=== PATIENT | male | born 1960 | race African-American/Black ===

== ENCOUNTER → 2018-10-24 10:09 | Outpatient (POV) | payer MEDICARE, SELFPAY ==
[2018-10-24 10:46] VITALS: BP 180/98; PULSE 84; RESP 18; O2SAT 98
--- NOTE | 2018-10-24 13:04 | HMH.PMCON ---
Assessment and Plan (1) Degenerative disc disease Current visit: Yes Status: Chronic Category: Medical (2) Facet arthropathy Current visit: Yes Status: Chronic Category: Medical Code(s): M47.819 - Spondylosis without myelopathy or radiculopathy, site unspecified - Assessment and plan all Dx Assessment and Plan for all problems:: Patient has had injective therapy with good relief in the past however most of his pain is axial in nature and it is increased with any kind of twisting movement. Patient has a positive Kemps test and positive facet loading is noted. Patient is on anti-inflammatories. Patient was on oxycodone from his previous pain clinic however he is not received that for quite some months. Patient and I discussed medial branch blocks he is interested in pursuing this. We will schedule him for 3 level L3-L4 L4-L5 L5-S1 bilateral medial branch block. Patient understands that this is a diagnostic procedure and he may be a candidate for a risotto me in the future. Patient's not on any anti-inflammatories and is continuing a home stretching routine. Dr. Bryson has reviewed this note and agrees with this plan of care. This note was dictated using voice recognition software and may contain errors or omissions HPI - Data of Consult Consult date: 10/24/18 Requesting Physician: Akanksha Spence APRN Primary Care Provider: Merari Ramesh - Consult Narrative Reason for consult: Back pain, neck History of present illness: Mr. Cisse is a 57 year old male who presents today for consultation in regard to his low back and neck pain. Patient rates pain a 5 out of 10 today. Patient stated started in 2007 after a medical accident. Patient has had low back pain and leg pain since. He has not had any surgical interventions. Patient was seen by a pain clinic where he received Percocet. Patient then had issues with his insurance and transfer care to another pain clinic where he received Percocet along with injections. Patient has not been seen there since July. Patient states that they were changing his prescriptions and he now looking for a new pain clinic. Patient and I discussed that we do not do medication management CC: Akanksha Spence APRN [facility] History I have reviewed the patient's past medical history: Yes Medical History: Reports:: Hyperlipidemia, Hypertension - *Social History Smoking Status: Current every day smoker Tobacco Type: cigarettes Alcohol Intake: never Occupational Status: other Housing: house Household Members: spouse Travel in the last 8 weeks: None - Psychiatric History Expresses thoughts of harming self/others: None Suicide Plan Description: No Plan *Family Hx:: Unable to obtain Review of Systems - Review of Systems ROS General: no recent weight change, no fever, no sleep disturbances Respiratory: no cough, no shortness of air, no recurring pulmonary infections Cardiovascular/Peripheral Vascular: No chest pain, No palpitations, no edema, no shortness of breath. Gastrointestinal: no incontinence, normal bowel movements reported Genitourinary: no incontinence Musculoskeletal: Back pain, leg pain, neck pain, arm pain Psychiatric: normal mood/ affect Neurological: [denies weakness in extremities], [denies balance issues] Meds Home Medications Medication Instructions Recorded Confirmed Type Amlodipine Besylate [Amlodipine 5 mg PO DAILY 10/24/18 10/24/18 History 10mg Tab] Cyclobenzaprine HCl 10 mg PO BID 10/24/18 10/24/18 History [Cyclobenzaprine 10mg Tab] Omeprazole [Omeprazole 40mg 40 mg PO DAILY 10/24/18 10/24/18 History Capsule] Oxycodone HCl [Oxycodone (IR) 10mg 10 mg PO QID 10/24/18 10/24/18 History Tab] Objective Vital signs: Pulse Resp BP Pulse Ox 84 18 180/98 H 98 10/24/18 10:46 10/24/18 10:46 10/24/18 10:46 10/24/18 10:46 Narrative: Physical Exam General: Alert and oriented x3, no a
--- NOTE | 2018-10-24 13:09 | P.CONS_ITS ---
Assessment and Plan (1) Degenerative disc disease Current visit: Yes Status: Chronic Category: Medical (2) Facet arthropathy Current visit: Yes Status: Chronic Category: Medical Code(s): M47.819 - Spondylosis without myelopathy or radiculopathy, site unspecified - Assessment and plan all Dx Assessment and Plan for all problems:: Patient has had injective therapy with good relief in the past however most of his pain is axial in nature and it is increased with any kind of twisting movement. Patient has a positive Kemps test and positive facet loading is noted. Patient is on anti-inflammatories. Patient was on oxycodone from his previous pain clinic however he is not received that for quite some months. Patient and I discussed medial branch blocks he is interested in pursuing this. We will schedule him for 3 level L3-L4 L4-L5 L5-S1 bilateral medial branch block. Patient understands that this is a diagnostic procedure and he may be a candidate for a risotto me in the future. Patient's not on any anti- inflammatories and is continuing a home stretching routine. Dr. Bryson has reviewed this note and agrees with this plan of care. This note was dictated using voice recognition software and may contain errors or omissions HPI - Data of Consult Consult date: 10/24/18 Requesting Physician: Akanksha Spence APRN Primary Care Provider: Merari Ramesh - Consult Narrative Reason for consult: Back pain, neck History of present illness: Mr. Cisse is a 57 year old male who presents today for consultation in regard to his low back and neck pain. Patient rates pain a 5 out of 10 today. Patient stated started in 2007 after a medical accident. Patient has had low back pain and leg pain since. He has not had any surgical interventions. Patient was seen by a pain clinic where he received Percocet. Patient then had issues with his insurance and transfer care to another pain clinic where he received Perco cet along with injections. Patient has not been seen there since July. Patient states that they were changing his prescriptions and he now looking for a new pain clinic. Patient and I discussed that we do not do medication management CC: Akanksha Spence APRN [facility] History I have reviewed the patient's past medical history: Yes Medical History: Reports:: Hyperlipidemia, Hypertension - *Social History Smoking Status: Current every day smoker Tobacco Type: cigarettes Alcohol Intake: never Occupational Status: other Housing: house Household Members: spouse Travel in the last 8 weeks: None - Psychiatric History Expresses thoughts of harming self/others: None Suicide Plan Description: No Plan *Family Hx:: Unable to obtain Review of Systems - Review of Systems ROS General: no recent weight change, no fever, no sleep disturbances Respiratory: no cough, no shortness of air, no recurring pulmonary infections Cardiovascular/Peripheral Vascular: No chest pain, No palpitations, no edema, no shortness of breath. Gastrointestinal: no incontinence, normal bowel movements reported Genitourinary: no incontinence Musculoskeletal: Back pain, leg pain, neck pain, arm pain Psychiatric: normal mood/ affect Neurological: [denies weakness in extremities], [denies balance issues] Meds Home Medications Medication Instructions Recorded Confirmed Type Amlodipine Besylate [Amlodipine 5 mg PO DAILY 10/24/18 10/24/18 History 10mg Tab] Cyclobenzaprine HCl 10 mg
== END ==
PROVIDERS: PCP Nurse Practitioner Family; Visit Provider Clinical Nurse Specialist Family Health
DX: M47.819 Spondylosis without myelopathy or radiculopathy, site unspecified (principal); M51.36 Other intervertebral disc degeneration, lumbar region
CPT/HCPCS: 99203

== ENCOUNTER → 2019-02-13 13:57 | Outpatient (POV) | payer MEDICARE, SELFPAY ==
[2019-02-13 14:14] VITALS: BP 174/98; PULSE 89; RESP 18; O2SAT 98; BMI 41.9
--- NOTE | 2019-02-13 14:22 | HMH.PAINSOAP ---
[facility] Pain Management SOAP Note Subjective:: Patient is a 58-year-old -[place] male who presents today for discussion in regards to therapy. At his last visit he was scheduled for a medial branch block which he no showed to. Patient is here today asking for oral narcotic medication. Patient and I discussed that we would not be giving him this. Patient has received multiple oral narcotic medications from physicians. Patient states that his issue started back in 2007. Patient states that he is changed his pain clinic because of them continually changing his prescription. He has been on oxycodone and morphine. ROS General: no recent weight change, no fever, no sleep disturbances Respiratory: no cough, no shortness of air, no recurring pulmonary infections Cardiovascular/Peripheral Vascular: No chest pain, No palpitations, no edema, no shortness of breath. Gastrointestinal: no incontinence, normal bowel movements reported Genitourinary: no incontinence Musculoskeletal: Back pain Psychiatric: normal mood/ affect Neurological: [denies weakness in extremities], [denies balance issues] Objective:: Physical Exam General: Alert and oriented x3, no acute distress, pleasant and cooperative, [on room air] Lungs: Resps E/U, Symmetrical chest expansion, Eyes: PERRL Musculoskeletal: Flexion and extension of lumbar spine somewhat guarded secondary to pain, deep tendon reflexes normal, strength in upper and lower extremities [5/5], [abnormal gait noted] Neurological: speech clear, 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 Patient would like narcotic pain medication. I told him to return to his primary care physician. I be happy to forward this note to his primary care physician. We will no longer see this patient he is uninterested in any therapies that we can provide him. Dr. Bryson has reviewed this note and agrees with this plan of care. This note was dictated using voice recognition software and may contain errors or omissions
--- NOTE | 2019-02-13 14:25 | P.CONS_ITS ---
[facility] Pain Management SOAP Note Subjective:: Patient is a 58-year-old -[place] male who presents today for discussion in regards to therapy. At his last visit he was scheduled for a medial branch block which he no showed to. Patient is here today asking for oral narcotic medication. Patient and I discussed that we would not be giving him this. Patient has received multiple oral narcotic medications from physicians. Patient states that his issue started back in 2007. Patient states that he is changed his pain clinic because of them continually changing his prescription. He has been on oxycodone and morphine. ROS General: no recent weight change, no fever, no sleep disturbances Respiratory: no cough, no shortness of air, no recurring pulmonary infections Cardiovascular/Peripheral Vascular: No chest pain, No palpitations, no edema, no shortness of breath. Gastrointestinal: no incontinence, normal bowel movements reported Genitourinary: no incontinence Musculoskeletal: Back pain Psychiatric: normal mood/ affect Neurological: [denies weakness in extremities], [denies balance issues] Objective:: Physical Exam General: Alert and oriented x3, no acute distress, pleasant and cooperative, [on room air] Lungs: Resps E/U, Symmetrical chest expansion, Eyes: PERRL Musculoskeletal: Flexion and extension of lumbar spine somewhat guarded secondary to pain, deep tendon reflexes normal, strength in upper and lower extremities [5/5], [abnormal gait noted] Neurological: speech clear, 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 Patient would like narcotic pain medication. I told him to return to his primary care physician. I be happy to forward this note to his primary care physician. We will no longer see this patient he is uninterested in any therapies that we can provide him. Dr. Bryson has reviewed this note and agrees with this plan of care. This note was dictated using voice recognition software and may contain errors or omissions
== END ==
PROVIDERS: Visit Provider Clinical Nurse Specialist Family Health
DX: M51.16 Intervertebral disc disorders with radiculopathy, lumbar region (principal)
CPT/HCPCS: 99212